=== PATIENT | male | born 1940 | race Caucasian/White ===

== ENCOUNTER 2016-07-30 | Outpatient (CLI) | payer MEDICARE | END 2016-07-30 14:31 | disposition home or self-care (01) ==

== ENCOUNTER 2016-07-30 15:30 | Outpatient (CLI) | payer MEDICARE | END 2016-07-30 15:31 | disposition home or self-care (01) | DX: E11.8 Type 2 diabetes mellitus with unspecified complications (principal); Z79.899 Other long term (current) drug therapy ==

== ENCOUNTER 2016-08-21 13:45 | Outpatient (CLI) | payer MEDICARE | END 2016-08-21 13:46 | disposition home or self-care (01) | DX: L03.115 Cellulitis of right lower limb (principal); E11.65 Type 2 diabetes mellitus with hyperglycemia; I50.30 Unspecified diastolic (congestive) heart failure; E11.621 Type 2 diabetes mellitus with foot ulcer; L97.519 Non-pressure chronic ulcer of other part of right foot with unspecified severity; E11.42 Type 2 diabetes mellitus with diabetic polyneuropathy; I87.8 Other specified disorders of veins; J44.9 Chronic obstructive pulmonary disease, unspecified; E66.01 Morbid (severe) obesity due to excess calories; I73.9 Peripheral vascular disease, unspecified; K59.09 Other constipation; F32.9 Major depressive disorder, single episode, unspecified; D64.9 Anemia, unspecified; Z99.81 Dependence on supplemental oxygen; Z79.82 Long term (current) use of aspirin; Z79.4 Long term (current) use of insulin; Z79.891 Long term (current) use of opiate analgesic; Z79.51 Long term (current) use of inhaled steroids; Z79.899 Other long term (current) drug therapy; Z66 Do not resuscitate; Z51.5 Encounter for palliative care ==

== ENCOUNTER 2017-03-23 19:40 | Outpatient (CLI) | payer MEDICARE | END 2017-03-23 19:41 | disposition critical access hospital (66) | LOC: EMS 19:40 | PROVIDERS: ATTEND Surgery | DX: R07.9 Chest pain, unspecified (principal) | CPT/HCPCS: A0425; A0427 ==

== ENCOUNTER 2017-03-23 20:23 | Emergency (ER) | payer MEDICARE ==
--- NOTE | 2017-03-23 20:41 | ED Physician Documentation ---
PD HPI CHEST PAIN - Stated complaint Stated Complaint: CHEST PN - Chief complaint Chief Complaint: Cardiac - History obtained from History obtained from: Patient - History of Present Illness Timing - onset: Today (this morning) Timing - onset during: Rest Timing - duration: Minutes Timing - details: Intermittant (episodic) Pain level now: 0 Quality: Sharp Location: Substernal, Left chest Radiation: Other (no radiation) Improved by: Nitro, ASA Worsened by: Other (no exacerbating factors) Associated symptoms: No: Shortness of air, Diaphoresis, Nausea, Vomiting, Palpitations Similar symptoms before: Has not had sx before Recently seen: Not recently seen - Additional information Additional information: episodic chest pain since this morning, resolved subsequent to NTG and aspirin given by medics, although the episodes earlier during the day had resolved without specific intervention Review of Systems Constitutional: reports: Reviewed and negative Cardiac: reports: Chest pain / pressure. denies: Palpitations, Pedal edema, Calf pain Respiratory: denies: Dyspnea GI: reports: Reviewed and negative PD PAST MEDICAL HISTORY - Past Medical History Cardiovascular: Hypertension Respiratory: COPD Neuro: None Endocrine/Autoimmune: Type 2 diabetes GI: Chronic constipation, Hemorrhoids : Renal insuffiency HEENT: None Psych: None Musculoskeletal: Osteoporosis Derm: Other - Past Surgical History Past Surgical History: Yes General: Cholecystectomy - Present Medications Home Medications: Ambulatory Orders Medication Instructions Recorded Confirmed Allopurinol [Zyloprim] 100 mg PO BID PRN 02/15/13 03/23/17 Aspirin [Aspir 81] 81 mg PO DAILY 02/15/13 03/23/17 Furosemide [Lasix] 240 mg PO BID 02/15/13 03/23/17 Potassium 60 meq PO BID 02/15/13 03/23/17 Simvastatin [Zocor] 20 mg PO DAILY 02/15/13 03/23/17 Metolazone 2.5 mg PO ONCE PRN 04/06/13 03/23/17 Senna [Senokot] 8.6 mg PO DAILY PRN 04/06/13 03/23/17 Albuterol Sulfate 1 ml NEB Q4HR PRN 04/08/13 03/23/17 Cholecalciferol (Vitamin D3) 2,000 unit PO DAILY 04/08/13 03/23/17 [Vitamin D-3] HYDROcodone/ACET 7.5/325 [Lortab 2 tab PO Q6H PRN 10/23/13 10/07/17 7.5/325] Ipratropium [place] 1 ml NEB ONCE PRN 04/08/13 03/23/17 Docusate Sodium 100 mg ORAL DAILY 04/12/15 03/23/17 Insulin Regular, Human [Humulin R 10 units SUBQ TIDWM 04/12/15 03/23/17 U-500] Tamsulosin HCl [Flomax] 0.4 mg ORAL DAILY 04/12/15 03/23/17 Insulin Glargine [Lantus Solostar] 50 units SQ BID 03/23/17 03/23/17 Metoprolol Tartrate 1 tab PO BID 03/23/17 03/23/17 - Allergies Allergies/Adverse Reactions: Allergies Allergy/AdvReac Type Severity Reaction Status Date / Time naproxen sodium * Allergy Intermediate Rash Verified 04/12/15 16:03 [From Aleve] lisinopril Allergy Unknown Verified 04/12/15 16:03 NSAIDS (Non-Steroidal Allergy Unknown Verified 04/12/15 16:03 Anti-Inflamma horsehair Allergy Unknown Uncoded 04/12/15 16:03 - Social History Does the pt smoke?: No Smoking Status: Never smoker Does the pt drink ETOH?: No Does the pt have substance abuse?: No - POLST Patient has POLST: No PD ED PE NORMAL - Vitals Vital signs reviewed: Yes - General General: Alert and oriented X 3, No acute distress, Well developed/nourished - Neck Neck: Supple, no meningeal sign - Cardiac Cardiac: RRR, No murmur - Respiratory Respiratory: No respiratory distress, Clear bilaterally - Abdomen Abdomen: Soft, Non tender, Non distended - Derm Derm: Normal color, Warm and dry - Extremities Extremities: No edema Results - Vitals Vitals: Oxygen O2 Source Nasal cannula Oxygen Flow Rate 2 - EKG (time done) No standard instances Rate: Rate (enter#) (90) Rhythm: NSR [place]: Normal Intervals: Normal ND QRS: Normal Ischemia: Normal ST segments Computer interpretation: Disagree with computer (disagree with ST elevations inferior leads) - Labs Labs: Laboratory Tests 03/23/17 03/23/17 03/23/17 20:34 20:34 20:34 WBC 10.9 H RBC 4.49 L Hgb 14.2 Hct 42.6 MCV 95.0 H MCH 31.6 H MCHC 33.3 RDW 14.9 Plt Count 268 MPV 8.2 Neut # 8.1 H Lymph # 1.8 [place] # 0.7 Eos # 0.2 Baso # 0.1 Absolute Nucleated RBC 0.00 Nucleated RBC % 0.0 Sodium 136 Potassium 3.2 L Chloride 86 L Carbon Dioxide 34 H Anion Gap 16.0 H BUN 70 H Creatinine 1.9 H Estimated GFR (MDRD) 35 L Glucose 264 H Calcium 10.7 H Total Bilirubin 0.4 AST 28 ALT 21 Alkaline Phosphatase 78 Troponin I < 0.04 Total Protein 7.5 Albumin 3.6 Globulin 3.9 Albumin/Globulin Ratio 0.9 L Lipase 34 - Rads (name of study) chest xray Radiology: Prelim report reviewed, See rad report PD MEDICAL DECISION MAKING - ED course Complexity details: reviewed results, re-evaluated patient, considered differential, d/w patient Departure - Departure Disposition: Home, Self Care Clinical Impression: Chest pain Condition: Good Instructions: ED Chest Pain Atypical Unkn Cause Comments: Follow up with your primary care physician: call Saturday to arrange for next available appointment. Your blood sugar was high today (264), as were your kidney tests (BUN/creatinine ). However, these are not related to your symptoms tonight, and these tests have been abnormal on previous tests. Your doctor might want to recheck these tests. Discharge Date/Time: 03/23/17 23:37
[2017-03-23 20:44] LABS: BASOPHILS # (AUTO) 0.1 10^3/uL (0.0-0.1); EOSINOPHILS # (AUTO) 0.2 10^3/uL (0.0-0.7); EOSINOPHILS % (AUTO) 1.7 %; HCT - HEMATOCRIT 42.6 % (42.0-52.0); HGB - HEMOGLOBIN 14.2 g/dL (14.0-18.0); LYMPHOCYTES # (AUTO) 1.8 10^3/uL (1.5-3.5); LYMPHOCYTES % (AUTO) 16.7 %; MEAN CORPUSCULAR HEMOGLOBIN 31.6 pg (27.0-31.0); MEAN CORPUSCULAR HGB CONC 33.3 g/dL (32.0-36.0); MEAN PLATELET VOLUME 8.2 fL (7.4-11.4); MONOCYTES # (AUTO) 0.7 10^3/uL (0.0-1.0); MONOCYTES % (AUTO) 6.2 %; NEUTROPHILS # (AUTO) 8.1 10^3/uL (1.5-6.6); NEUTROPHILS % (AUTO) 74.4 %; RED BLOOD COUNT 4.49 10^6/uL (4.70-6.10); RED CELL DISTRIBUTION WIDTH 14.9 % (12.0-15.0); UNCORRECTED WHITE BLOOD COUNT 10.9 x10^3/uL; WHITE BLOOD COUNT 10.9 x10^3/uL (4.8-10.8)
[2017-03-23 20:58] LABS: ALBUMIN/GLOBULIN RATIO 0.9 (1.0-2.2); BILIRUBIN,TOTAL 0.4 mg/dL (0.2-1.0); CALCIUM 10.7 mg/dL (8.5-10.3); CREATININE 1.9 mg/dL (0.6-1.2); POTASSIUM 3.2 mmol/L (3.5-5.0); TOTAL PROTEIN 7.5 g/dL (6.7-8.2)
--- NOTE | 2017-03-23 21:50 | XRAY Preliminary Report ---
Exam: XR Chest 2 View PA/LAT IMPRESSION: 1. Hypoaeration with stable left pleural thickening. 2. Cardiomegaly with aortic tortuosity. [facility] SITE ID: [id number]
--- NOTE | 2017-03-23 21:52 | XRAY Report ---
EXAM: CHEST RADIOGRAPHY EXAM DATE: 03/23/2017 09:35 PM. CLINICAL HISTORY: Chest pain. COMPARISON: Chest x-ray 04/13/2015. TECHNIQUE: 2 views. FINDINGS: Lungs/Pleura: Mild hypoaeration with left pleural thickening. No acute consolidation. Mediastinum: Cardiomegaly with tortuosity of the thoracic aorta. Other: None. IMPRESSION: 1. Hypoaeration with stable left pleural thickening. 2. Cardiomegaly with aortic tortuosity. [facility] Referring Provider Line: [phone] SITE ID: [id number]
[2017-03-23 23:18] VITALS: BP 104/53
== END 2017-03-23 23:37 | disposition home or self-care (01) ==
LOC: EDUNIT# → ED 20:23
DX: R07.9 Chest pain, unspecified (principal); I10 Essential (primary) hypertension; J44.9 Chronic obstructive pulmonary disease, unspecified; E11.9 Type 2 diabetes mellitus without complications; Z79.4 Long term (current) use of insulin; N28.9 Disorder of kidney and ureter, unspecified; Z79.82 Long term (current) use of aspirin
CPT/HCPCS: 36415; 71020; 80053; 83690; 84484; 85025; 93005; 99284

== ENCOUNTER 2017-04-15 09:35 | Outpatient (CLI) | payer MEDICARE ==
[2017-04-15] MEDS ORDERED: REGADENOSON 0.4 MG/5 ML SYRINGE IVP ONE (12:09)
--- NOTE | 2017-04-15 14:35 | Nuclear Medicine Report ---
EXAM: SINGLE-ISOTOPE PHARMACOLOGICAL STRESS TEST WITH REGADENOSON. SINGLE-ISOTOPE AND TWO-DAY REST/STRESS M YOCARDIAL PERFUSION SCANS WITH TOMOGRAPHIC IMAGING, QUANTITATIVE ANALYSIS, WALL MOTION ANALYSIS AND C ALCULATION OF EJECTION FRACTION. EXAM DATE: 04/15/2017 11:27 AM. CLINICAL HISTORY: CHEST PAIN. COMPARISON: None. TECHNIQUE: After the intravenous administration of 10.5 mCi of Tc-99m sestamibi, a rest myocardial perfusion sca n was done with tomography. Motion correction was applied when appropriate. A pharmacological stress was performed with the infusion of 0.4 mg regadenoson per protocol. Accordin g to protocol, 44 mCi of Tc-99m sestamibi was injected for stress myocardial perfusion scan. Motion c orrection was applied when appropriate. Gated tomographic images were obtained for wall motion analysis and computation of left ventricular e jection fraction. FINDINGS: Images show a small, mild, reversible distal anteroseptal wall defect. No other convincing fixed or reversible perfusion defects. Wall motion analysis demonstrates no focal wall motion abnormality The left ventricular end-diastolic volume is 71 cc. The left ventricular end-systolic volume is 32 cc . The left ventricular ejection fraction is calculated to be 55%. IMPRESSION: 1. Small, mild, distal anteroseptal wall reversible defect. No other convincing fixed or reversible p erfusion defects. 2. Normal left ventricular ejection fraction of 55%. 3. Normal segmental and global wall motion. 4. Normal left ventricular cavity size, no change with stress. [facility] Referring Provider Line: [phone] SITE ID: [id number]
--- NOTE | 2017-04-15 22:45 | CARDIAC PROCEDURE NOTE ---
DATE OF SERVICE: BLOOD PRESSURE RESPONSE: 127/79 to a maximum 144/81. HEART RATE RESPONSE: 104 to observed maximum of 120, the machine read 136. SYMPTOMS: No chest pain. There was some shortness of breath. EXAMINATION CHANGES: None. ST-SEGMENT RESPONSE: No ST-segment elevations or depressions. ARRHYTHMIAS: One PAC detected. IMPRESSION: No symptoms or significant EKG changes. CONCLUSION: Await imaging studies. JOB #: [id number] EXT JOB #:[id number]
[2017-04-16 11:06] VITALS: BP 127/79
== END 2017-04-15 09:36 | disposition home or self-care (01) ==
LOC: DI 09:35
PROVIDERS: ATTEND Internal Medicine
DX: R07.9 Chest pain, unspecified (principal)
CPT/HCPCS: 78452; 93017; A9500; J2785

== ENCOUNTER 2017-07-23 20:24 | Outpatient (CLI) | payer MEDICARE ==
--- NOTE | 2017-07-23 20:33 | CONSULTATION NOTE ---
Palliative Care Follow Up - Referral Referring Provider: Dr Marivel Candelaria Time of Visit: 07/23/2017 14:20 - 15:35 Referral setting: Home (Seen in home setting due to taxing and considerable effort required to leave the home due to lower extremity weakness and being bed- bound in the recliner) - Information Sources Records reviewed: Previous records reviewed History/Review of Systems obtained from: Patient, Family Exam limitations: No limitations - History of Present Illness Update Brief HPI Update: This is a 76-year-old gentleman with end-stage COPD, morbid obesity, diabetes with peripheral neuropathy and nephropathy, diastolic heart failure, and peripheral vascular disease. He was last seen by palliative care nearly a year ago, in August 2016. His , who is his sole caregiver, states that she wanted nursing to come in, because she needs to know how he is doing, and needs some help. She had wanted nursing to come to draw his blood for lab work, and I educated her on what home health nursing actually is for. She does state that they have too much income to qualify for [facility] caregiving, but they cannot afford to hire outside care givers to relieve the burden of full care giving from her. Their adult son lives with them, but apart from watching the patient for short times while she leaves, the brunt of the caregiving falls on her. Their are son works very long hours in [place], on Wednesdays and Fridays. She says at this time Saturday afternoons are the only time she could get patient out of the house, because she needs her son there to help with that. The palliative care MECHANICAL ENGINEERING ADVISOR last year facilitated obtaining a bariatric wheelchair for the patient to accommodate the patient's large size. However this extra wide chair means that it is very difficult to actually get it through the exterior door, and so in effect he is remains "recliner bound" -- and housebound -- because of this logistical issue. He is unable to use the wheelchair even inside the house due to its size. She did say when her son is home on Saturdays, he could help her get him out, but she is unable to handle the wheelchair and get it in and out of the car. The patient continues to experience shortness of breath at rest, and he currently uses a nebulizer about 4 times a day, with Dulera inhaler BID and ProAir inhaler as needed, usually 2-3 times daily. He is also on oxygen, 1.5 L. His spouse is not willing to consider morphine for relief of breathlessness. I provided education, and weighing benefits and burdens. She delinces at this time. He continues to use [place] 4 times a day for pain control, and also reports constipation. She has not been administering the MiraLAX previously prescribed. He does complain of tingling, stinging pain in both hands and his feet. I discussed starting gabapentin, weighing benefits and burdens, and his agreed to accept a prescription for this. I am not certain that she will actually get it fulfilled. She said she is not administering the citalopram previously prescribed because she is concerned about potential side effects, in particular psychotic episodes (her "standing over her with a knife"). I did discuss side effects, benefits and burdens. The skin of his lower extremities is compromised secondary to peripheral vascular disease, but no open wounds, no blisters, no signs of infection or cellulitis, nor edema currently. Skin on the lower extremities is dry and flaky. His toenails are quite thick with fungal infection, and several toes on L foot are discolored dark red from vascular deficiency, as well as on his R kauffman. The patient reports that his appetite has definitely decreased. He is currently 243 lbs, down from last year's 317 lbs, 23.3%. Social History - Living Situation Living arrangement: At home Living Situation: With spouse/s.o. (His spouse is his sole caregiver. The adult son lives with them, but works long hours and is unavailable most of the time. He may be available on Saturday afternoons, or for short periods to watch the patient while his spouse goes on errands.) Medications/Allergies - Medications Home Medications: Ambulatory Orders Medication Instructions Recorded Confirmed Allopurinol [Zyloprim] 100 mg PO BID PRN 02/15/13 07/23/17 Aspirin [Aspir 81] 81 mg PO DAILY 02/15/13 07/23/17 Furosemide [Lasix] 240 mg PO BID 02/15/13 07/23/17 Potassium 20 meq PO BID 02/15/13 07/23/17 Simvastatin [Zocor] 20 mg PO DAILY 02/15/13 07/23/17 metOLazone [Metolazone] 2.5 mg PO .2 TIMES PER WEEK PRN 04/06/13 07/23/17 Cholecalciferol (Vitamin D3) 2,000 unit PO DAILY 04/08/13 07/23/17 [Vitamin D-3] HYDROcodone/ACET 7.5/325 [Lortab 1 tab PO Q6H PRN 04/08/13 07/23/17 7.5/325] Docusate Sodium 100 mg ORAL DAILY 04/12/15 07/23/17 Insulin Regular, Human [Humulin R 10 units SUBQ TIDWM 04/12/15 07/23/17 U-500] Tamsulosin HCl [Flomax] 0.4 mg ORAL DAILY 04/12/15 07/23/17 Insulin Glargine [Lantus Solostar] 110 units SQ BID 03/23/17 07/23/17 Metoprolol Tartrate 50 mg PO BID 03/23/17 07/23/17 Albuterol Sulfate [Proair Hfa 2 puffs PO Q4H PRN 07/23/17 07/23/17 Inhaler] Gabapentin 200 mg PO QPM 07/23/17 07/23/17 Ipratropium/Albuterol [Duoneb] 3 ml 07/23/17 Mometasone/Formoterol [Dulera 200 2 puffs PO BID 07/23/17 07/23/17 Mcg/5 Mcg Inhaler] Polyethylene Glycol 3350 [Miralax] 17 gm PO DAILY MDD use from 06/20 - 07/23/17 1 capful daily Zinc 50 mg PO DAILY 07/23/17 07/23/17 - Allergies Allergies/Adverse Reactions: Allergies Allergy/AdvReac Type Severity Reaction Status Date / Time naproxen sodium * Allergy Intermediate Rash Verified 04/12/15 16:03 [From Aleve] lisinopril Allergy Unknown Verified 04/12/15 16:03 NSAIDS (Non-Steroidal Allergy Unknown Verified 04/12/15 16:03 Anti-Inflamma horsehair Allergy Unknown Uncoded 04/12/15 16:03 Review of Systems - Constitutional Constitutional: reports: Fatigue, Weakness, Poor appetite, Weight loss (243 lbs on 06/21/2017. Down from 317 lbs last year. 23.3% decrease) - Ears, Nose & Throat Ears, Nose & Throat: reports: Hearing loss - Cardiovascular Cardiovascular: reports: Decr. exercise tolerance - Respiratory Respiratory: reports: SOB at rest - Gastrointestinal Gastrointestinal: reports: Constipation, Poor appetite, Early satiety - Genitourinary Genitourinary: reports: Incontinence (of bladder) - Musculoskeletal Musculoskeletal: reports: Limited range of motion, Muscle weakness, Gout (no current outbreak) - Integumentary Integumentary: reports: Pigment changes (hemosiderin skin right lower extremity) , Other (fungal toenails; discolored toes of L foot secondary to vascular compromise) - Neurological Neurological: reports: Memory problems - Endocrine Endocrine: reports: Diabetes type 2 Physical Exam - Vital Signs Temperature: 96.3 F Pulse Rate: 95 Blood Pressure: 140/70 - Physical Exam General Appearance: positive: Alert, Mild distress (when he was made to stand up for a skin inspection), Lethargic Eyes Bilateral: positive: EOMI, No lid inflammation, Conjunctivae nml, No scleral icterus ENT: positive: No signs of dehydration Neck: positive: No JVD, Trachea midline Cardiovascular: positive: Regular rate & rhythm, No murmur, No gallop Abdomen: positive: Non-tender, Soft, Nml bowel sounds, Distended, Obese, Other ( marked ventral hernia) Skin: positive: Dryness (lower extremities), Other (discolored in sacral region , likely deep tissue damage from immobility) Extremities: positive: No pedal edema Neurologic/Psychiatric: positive: Disoriented to time, Weakness, Sensory loss ( in feet), Flat affect Palliative Care - POLST POLST Status: DNR, Selective Treatment Pain: Comment (complaints of stinging pain in both hands, and feet) Drowsiness/Sedation: Mild (1-3) Dyspnea: Moderate (4-6) Anorexia: Moderate (4-6) Constipation: Yes, Opoid induced - Palliative Care Discussion: Patient's main complaint is pain in his hands and feet. He is willing to try a medication for neuropathic pain. POLST is signed, DNR and selective treatment. His fear is of ending up in a skilled nursing. was hoping for Home Health, I educated that there is no qualifying criteria met at this current time. She has appreciated the training and help in the past. She would like lab draws done to see "how he is doing." I filled out a lab requisition form and they may go to the [facility] for the lab draw. Impression and Recommendations - Palliative Care Impression: This is a 76-year old gentleman who presents with end-stage chronic pulmonary disease, diastolic heart failure, and chronic kidney disease. He has multiple serious co-morbidities, but with no acute presentation. Recommendations/Counseling Done: DM II: Currently on Lantus 110 units BID and Humalog insulin 10 units TID with meals. A1C from 07/30/16 was 7.7. Ordered A1C lab draw. Neuropathic pain, hands and feet: Start gabapentin 200 mg PO daily at bedtime. End stage COPD: Continue nebulizer, 1.5 liters O2, albuterol prn and anticholinergic/long-acting steroid inhaler (Dulera). Labs ordered, see below. Morphine for alleviation of breathlessness declined at this time. Diastolic heart failure: Continue furosemide and metoprolol for rate/pressure control. No edema currently. Constipation: Advised to not use docusate sodium, to go back to using Miralax, use it daily and titrate dosage (from 1/4 - 1 capful) rather than using it PRN. Advanced care planning: POLST in place, no changes: DNR, selective treatment. Ordered labs: CMP, WBC, A1c Follow up in 1-2 weeks after initiation of gabapentin. Time Spent: 75 minutes with greater than 50% of the time spent on counseling, education, and coordination of care, including medication reconciliation.
== END 2017-07-23 20:25 | disposition home or self-care (01) ==
LOC: PC 20:24
PROVIDERS: ATTEND Nurse Practitioner
DX: Z51.5 Encounter for palliative care (principal); E11.21 Type 2 diabetes mellitus with diabetic nephropathy; E11.40 Type 2 diabetes mellitus with diabetic neuropathy, unspecified; Z79.4 Long term (current) use of insulin; G57.93 Unspecified mononeuropathy of bilateral lower limbs; G56.93 Unspecified mononeuropathy of bilateral upper limbs; J44.9 Chronic obstructive pulmonary disease, unspecified; I50.30 Unspecified diastolic (congestive) heart failure; K59.00 Constipation, unspecified; E66.01 Morbid (severe) obesity due to excess calories; Z99.81 Dependence on supplemental oxygen; I73.9 Peripheral vascular disease, unspecified; Z79.82 Long term (current) use of aspirin; Z79.891 Long term (current) use of opiate analgesic; Z79.51 Long term (current) use of inhaled steroids; R53.83 Other fatigue; Z66 Do not resuscitate
CPT/HCPCS: 99350

== ENCOUNTER 2017-07-29 11:18 | Outpatient (CLI) | payer MEDICARE ==
[2017-07-29 18:02] LABS: BASOPHILS # (AUTO) 0.1 10^3/uL (0.0-0.1); BASOPHILS % (AUTO) 0.4 %; EOSINOPHILS # (AUTO) 0.3 10^3/uL (0.0-0.7); EOSINOPHILS % (AUTO) 2.1 %; HGB - HEMOGLOBIN 13.5 g/dL (14.0-18.0); LYMPHOCYTES # (AUTO) 2.3 10^3/uL (1.5-3.5); LYMPHOCYTES % (AUTO) 18.3 %; MEAN CORPUSCULAR HEMOGLOBIN 30.5 pg (27.0-31.0); MEAN CORPUSCULAR HGB CONC 32.1 g/dL (32.0-36.0); MEAN CORPUSCULAR VOLUME 95.3 fL (80.0-94.0); MEAN PLATELET VOLUME 9.2 fL (7.4-11.4); MONOCYTES # (AUTO) 0.8 10^3/uL (0.0-1.0); NEUTROPHILS # (AUTO) 9.2 10^3/uL (1.5-6.6); NEUTROPHILS % (AUTO) 73.2 %; PLT - PLATELET COUNT 309 10^3/uL (130-450); RED BLOOD COUNT 4.41 10^6/uL (4.70-6.10); RED CELL DISTRIBUTION WIDTH 15.1 % (12.0-15.0); WHITE BLOOD COUNT 12.5 x10^3/uL (4.8-10.8)
[2017-07-29 18:12] LABS: HB2 TOTAL 14.9 g/dL; HEMOGLOBIN A1C 0.99 g/dL; HEMOGLOBIN A1C % 8.2 % (4.6-6.2)
[2017-07-29 18:20] LABS: ALBUMIN 3.5 g/dL (3.2-5.5); ALBUMIN/GLOBULIN RATIO 0.9 (1.0-2.2); BILIRUBIN,TOTAL 0.5 mg/dL (0.2-1.0); CALCIUM 10.1 mg/dL (8.5-10.3); CREATININE 1.4 mg/dL (0.6-1.2); TOTAL PROTEIN 7.5 g/dL (6.7-8.2)
== END 2017-07-29 11:19 | disposition home or self-care (01) ==
LOC: LAB.S 11:18
PROVIDERS: ATTEND Nurse Practitioner
DX: E11.9 Type 2 diabetes mellitus without complications (principal)
CPT/HCPCS: 36415; 80053; 83036; 85025

== ENCOUNTER 2017-10-04 04:08 | Outpatient (CLI) | payer MEDICARE | END 2017-10-04 04:09 | disposition EMS.NT | LOC: EMS 04:08 | PROVIDERS: ATTEND Surgery | DX: Z03.89 Encounter for observation for other suspected diseases and conditions ruled out (principal) ==

== ENCOUNTER 2017-10-17 16:10 | Outpatient (CLI) | payer MEDICARE ==
--- NOTE | 2017-10-17 20:35 | CONSULTATION NOTE ---
Palliative Care Follow Up - Referral Referring Provider: Dr Candelaria Time of Visit: 10/17/2017. 16:10 - 18:00 Referral setting: Home (Seen in home setting due to taxing and considerable effort required to leave the home due to immobility and being bedbound from lower extremity weakness secondary to multiple comorbidities.) Referral Reason: Urinary retention / lower extremity weakness / acute functional decline - Information Sources Records reviewed: Previous records reviewed History/Review of Systems obtained from: Patient, Family Exam limitations: No limitations - History of Present Illness Update Brief HPI Update: FACE to FACE for hospital bed, Group I surface mattress, and Home Health Nursing for Indwelling catheter: Due to shortness of air as a result of orthopnea due to heart failure and advanced COPD, patient requires positioning of body in ways not feasible in an ordinary bed such as elevation of head more than 30 degrees. Head of bed elevation over 30 degrees will alleviate exacerbated symptoms caused by heart failure. Patient also requires frequent change in body position such as immediate elevation of head of bed from flat position to elevation over 30 degrees as a result of shortness of air. Pillows and wedges have been unsuccessful in accommodating the desired head of bed elevation, therefore a hospital bed will be necessary for treating the effects of shortness of air and orthopnea secondary to heart failure and COPD. Due to lower extremity weakness and immobility as a result of heart failure and advanced COPD, patient is completely immobile in bed and requires a Group 1 support surface to promote healthy skin integrity as well as reduce occurrence of decubitus ulcers while in bed. Patient was experiencing urinary retention, the etiology of which is multifactorial likely related to his immobility, CKD, BPH, and multiple comorbidities. A Boland indwelling catheter was placed, immediately draining 2500 + cc. Patient and family require on-going nursing oversight and support of indwelling catheter. He is homebound and currently confined to his recliner, and he will also require monitoring of skin integrity. -A 77-year-old gentleman with end-stage COPD, who is bedridden and experiencing increased weakness in legs so that he is no longer able to stand, weight bear, or assist with transfers. His is his sole caregiver. -Comorbidities: End-stage COPD, diastolic heart failure (EF 55%), morbid obesity , diabetes with peripheral neuropathy and nephropathy, peripheral vascular disease, hypertension, retinopathy, RAD, pulmonary hypertension, CAD, CKD ABHINAV, BPH, gout, anemia, depression, history of cholecystectomy, history of laser eye procedure. -This is a very ill gentleman, etiology multifactorial due to his numerous comorbidities. -His is his sole caregiver and at risk for burnout. Does not or cannot hire outside caregiving support. -Acute decrease in functionality and increased lower extremity weakness x 2 weeks. -No longer able to bear any weight x 2 weeks. - no longer able to perform single-person transfer assist. -Now requires 2 large men to transfer from recliner to perform hygiene for bowel incontinence. - requests indwelling Boland catheter due to his immobility / recliner-bound. -Indwelling Boland catheter placed today with immediate 2500+ cc juan colored drainage. -Drainage of urine resolved the lower abdominal pain patient had when attempting to lean forward/sit upright. -Chronic pain and numbness in hands and feet. - reports gabapentin did not make any difference and she stopped giving it but doesn't actually recall med's name. -I cannot confirm it was gabapentin, and it is still listed on 10/07/17 med list from PCP. -Candidiasis rash on R groin, none on L. uses Coloplast moisture barrier antifungal cream. I will switch that to Nystatin powder to promote dryness. -He is chronically constipated with alternating hard stool and loose stools, with BMs "every few weeks." -His is not administering the Miralax. -Patient normally drinks water throughout the day, but decreased his fluid intake recently, likely due to the urine backup. -Also his SOA may improve now that his bladder can empty -He became short of air within a quarter hour on room air, but O2 sats remained 91-92% on Room air, 95-99% with oxygen, -He retains CO2. -The patient likely meets Hospice criteria and it is consistent withpatient's goals of remaining at home and not go to the hospital. -Discussed this with Hospice ophthalmic medical technologist, and will monitor his progress now that he has an indwelling catheter and will have a hospital bed. -Also called Dr Candelaria's clinic to discuss Hospice eligibility, she will call back. Social History - Living Situation Living arrangement: At home Living Situation: With spouse/s.o. Support System: The spouse is his sole caregiver. Their adult son lives with them, or did, but is mostly unavailable. She has been getting "two big men" to help stand him up every time she needs to clean him after BMs. Medications/Allergies - Medications Home Medications: Ambulatory Orders Medication Instructions Recorded Confirmed Allopurinol [Zyloprim] 100 mg PO BID PRN 02/15/13 10/17/17 Aspirin [Aspir 81] 81 mg PO DAILY 02/15/13 10/17/17 Furosemide [Lasix] 240 mg PO BID 02/15/13 10/17/17 Potassium 20 meq PO BID 02/15/13 10/17/17 Simvastatin [Zocor] 20 mg PO DAILY 02/15/13 10/17/17 metOLazone [Metolazone] 2.5 mg PO .ONCE A WEEK 04/06/13 10/17/17 Cholecalciferol (Vitamin D3) 2,000 unit PO DAILY 04/08/13 10/17/17 [Vitamin D-3] HYDROcodone/ACET 7.5/325 [Lortab 1 tab PO Q6H PRN 04/08/13 10/17/17 7.5/325] Insulin Regular, Human [Humulin R 10 units SUBQ TIDWM 04/12/15 10/17/17 U-500] Tamsulosin HCl [Flomax] 0.4 mg ORAL DAILY 04/12/15 10/17/17 Insulin Glargine [Lantus Solostar] 50 units SQ BID 03/23/17 10/18/17 Metoprolol Tartrate 50 mg PO BID 03/23/17 10/17/17 Albuterol Sulfate [Proair Hfa 2 puffs PO Q4H PRN 07/23/17 10/17/17 Inhaler] Gabapentin 200 mg PO QPM 07/23/17 10/17/17 Ipratropium/Albuterol [Duoneb] 3 ml PO BID 07/23/17 10/17/17 Mometasone/Formoterol [Dulera 200 2 puffs PO BID 07/23/17 10/17/17 Mcg/5 Mcg Inhaler] Polyethylene Glycol 3350 [Miralax] 17 gm PO DAILY MDD use from 06/20 - 07/23/17 1 capful daily Zinc 50 mg PO DAILY 07/23/17 10/17/17 Ipratropium/Albuterol Sulfate 3 ml PO Q4H PRN 10/17/17 10/17/17 [Iprat-Albut 0.5-3(2.5) mg/3 ml] Isosorbide Mononitrate [Isosorbide 30 mg PO DAILY 10/17/17 10/17/17 Mononitrate ER] Nitroglycerin 0.4 mg SL Q5MIN PRN 10/17/17 10/17/17 Nystatin 1 ea TOP BID 10/17/17 10/17/17 - Allergies Allergies/Adverse Reactions: Allergies Allergy/AdvReac Type Severity Reaction Status Date / Time naproxen sodium * Allergy Intermediate Rash Verified 04/12/15 16:03 [From Aleve] lisinopril Allergy Unknown Verified 04/12/15 16:03 NSAIDS (Non-Steroidal Allergy Unknown Verified 04/12/15 16:03 Anti-Inflamma horsehair Allergy Unknown Uncoded 04/12/15 16:03 Review of Systems - Constitutional Constitutional: reports: Fatigue, Weakness, Weight loss (Most recent confirmed weight is 239.5 lbs (BMI 33) at Mar 2017 ED visit. Previous confirmed weight is 341.66 lbs (BMI 50.6) at Mar 2015 ED visit.) - Ears, Nose & Throat Ears, Nose & Throat: reports: Hearing loss - Respiratory Respiratory: reports: SOB at rest (oxygen 1.5L 24/7.) - Gastrointestinal Gastrointestinal: reports: Constipation (Alternating constipation/hard stools and loose stools), Diarrhea - Genitourinary Genitourinary: reports: Incontinence. denies: Dysuria, Frequency - Musculoskeletal Musculoskeletal: reports: Muscle pain ("pain all over" Takes [place] 7.5/325 4x daily for years), Assistive devices (Wheelchair), Transfer issues (Increased lower extremity weakness so he is non weight bearing x 2 weeks), Other (chronic pain and numbness in hands and feet) - Integumentary Integumentary: reports: Rash (Candidiasis rash R groin) - Neurological Neurological: reports: General weakness, Focal weakness (acute, in lower extremities), Memory problems Physical Exam - Vital Signs Temperature: 97.1 F Pulse Rate: 71 O2 Saturation: 91 (room air) Blood Pressure: 160/92 - Physical Exam General Appearance: positive: No acute distress, Alert Eyes Bilateral: positive: No lid inflammation, Conjunctivae nml, No scleral icterus ENT: positive: No signs of dehydration Neck: positive: No JVD, Trachea midline Cardiovascular: positive: Regular rate & rhythm, Systolic murmur (06/22) Respiratory: positive: Diminished throughout (body habitus), Wheezes, Rales ( crackles) Abdomen: positive: Tenderness (lower right groin area), Obese Skin: positive: Rash (candidiasis rash R groin.) Extremities: positive: No pedal edema, Other (Discoloration on Lower extremities. Scabbed, healing trauma wound on R kauffman.) Neurologic/Psychiatric: positive: Oriented x3, Flat affect Palliative Care - POLST Patient has POLST: Yes POLST Status: DNR Pain: Pain unchanged, Comment (chronic pain "all over" but complains mostly about hands and feet. Reports gabapentin did not make a difference and so they stopped it) Dyspnea: Severe (7-10) (without oxygen) Sleep: Sleeps poorly (recent insomnia, possibly related to discomfort from urinary retention) Constipation: Yes, Unmanaged (non-adherent) Performance Status: Worsening in the past two weeks. Patient is no longer able to bear any weight and requires 2 men to lift him from recliner for hygiene procedures. - Palliative Care Discussion: Patient is adamant that he does not want to leave home or go to hospital. He is fearful if he goes to hospital he will there. He is now completely recliner- bound. His is the sole caregiver and is at high risk of burnout. She has to round up two big men any time she needs to get him out of his recliner, which is whenever he has a BM, which is apparently not very often. On 10/04/17 he fell out of his recliner and EMS was called to provide lift assistance. Switching the patient to a hospital bed will improve the ability to provide appropriate care now that he is immobile and [id number]. He was on Home Health in the past, and the is relieved that a HH nurse will be monitoring the catheter and providing oversight and education. Patient and were both agreeable to Hospice when he meets criteria. There is still the issue of halfway care and care giving, and I provided education to the , both during the visit and on the previous phone conversation that Hospice, HH, and Palliative Care cannot provide and do not replace care giving services. Impression and Recommendations - Palliative Care Impression: This is a 77-year-old gentleman with end-stage chronic pulmonary disease, diastolic heart failure, and chronic kidney disease who has recently decline and become immobile and [id number]. He had urinary retention of unknown duration, relieved by placement of an indwelling catheter. Home health RN will provide monitoring and maintenance of the catheter, a hospital bed is recommended due to patient's chronic SOA and to provide an environment for appropriate caregiving. If patient's status does not improve, transition to hospice will be recommended. Recommendations/Counseling Done: Constipation: Patient and non-adherent on bowel medications. Encouraged her to restart Miralax and use it daily, titrating dosage if loose stools occur. Patient usually hydrates well, but had not done so in the past two weeks , likely related to the urinary retention. He may restart, and this would also hopefully improve his BMs. SOA: Chronic. Using Duonebs and Dulara (will be switching to Advair when Dulera is out). At next visit, have patient demonstrate his inhalation technique. Continue 24/4 O2 via nasal cannula, currently 15.L/min. Urinary retention likely exacerbated the SOA, will monitor for improvement now that he has indwelling catheter. Urinary retention: Boland catheter placed, 2500+ cc of urine were immediately drained. HH Nursing will be monitoring and maintaining the catheter. Monitor for improvement in functionality and mobility. Lower extremity weakness: Etiology unknown but likely multifactorial. Patient unable to weight bear x 2 weeks. Ordered hospital bed and Grade I surface mattress to promote skin integrity. HH will monitor skin during visits. Montor for improvement or continued decline. Advanced care planning: LAKIAST from [address]: DNR and selective treatments. Patient is adamant that he does not want hospitalization, so review his POLST at upcoming visit and update to comfort care if patient is agreeable. Monitor his progress now that he is catheterized and will be in a hospital bed, which hopefully will improve his 's ability to provide care. Left message with PCP, Dr Candelaria, about transitioning to Hospice. For the time being, put him on HH and continue Palliative care monitoring, with plan to transition to Hospice if no improvements in status, functionality, and SOA. Time Spent: 110 minutes were spent with more than 50% of the time spent on counseling, education, and coordination of care. Provided anticipatory guidance.
== END 2017-10-17 16:11 | disposition home or self-care (01) ==
LOC: PC 16:10
PROVIDERS: ATTEND Nurse Practitioner
DX: Z51.5 Encounter for palliative care (principal); I13.0 Hypertensive heart and chronic kidney disease with heart failure and stage 1 through stage 4 chronic kidney disease, or unspecified chronic kidney disease; I50.30 Unspecified diastolic (congestive) heart failure; J44.9 Chronic obstructive pulmonary disease, unspecified; R33.9 Retention of urine, unspecified; R53.1 Weakness; E11.22 Type 2 diabetes mellitus with diabetic chronic kidney disease; E11.42 Type 2 diabetes mellitus with diabetic polyneuropathy; E11.51 Type 2 diabetes mellitus with diabetic peripheral angiopathy without gangrene; E11.319 Type 2 diabetes mellitus with unspecified diabetic retinopathy without macular edema; N18.9 Chronic kidney disease, unspecified; N40.1 Benign prostatic hyperplasia with lower urinary tract symptoms; R33.8 Other retention of urine; E66.01 Morbid (severe) obesity due to excess calories; Z68.33 Body mass index [BMI] 33.0-33.9, adult; B37.2 Candidiasis of skin and nail; K59.09 Other constipation; R53.83 Other fatigue; Z66 Do not resuscitate; Z79.4 Long term (current) use of insulin
CPT/HCPCS: 99350

== ENCOUNTER 2017-11-21 21:19 | Outpatient (CLI) | payer MEDICARE ==
--- NOTE | 2017-11-21 21:53 | CONSULTATION NOTE ---
Palliative Care Follow Up - Referral Referring Provider: Dr Candelaria Time of Visit: 11/22/2017. 13:40 - 14:10 Referral setting: Home (Seen in home setting due to taxing and considerable effort required to leave the home due to immobility and being bedboud from lower extremity weakness secondary to multiple comorbidities.) Referral Reason: Pain in hands - Information Sources Records reviewed: RN notes reviewed, Previous records reviewed History/Review of Systems obtained from: Patient, Family, Nursing, Other ( Physical Therapy) - History of Present Illness Update Brief HPI Update: -77-year-old gentleman with end-stage COPD, who is bedridden. He is unable to stand, bear weight, assist with transfers, or reposition himself in bed. His is his sole caregiver. -Comorbidities, end-stage COPD, diastolic heart failure (EF 55%), morbid obesity , diabetes with peripheral neuropathy and nephropathy, peripheral vascular disease, hypertension, retinopathy, RAD, pulmonary hypertension, CAD, CKD ABHINAV, BPH, gout, anemia, depression, history of cholecystectomy, history of laser eye procedure. -Last month his lower extremity weakness greatly exacerbated, secondary to severe urinary retention. Boland catheter was placed and he had liters of urine draining over the next 24 hours. -Since the placement of Boland catheter he has significantly improved, although continues to be completely non-weightbearing. -He is in a hospital bed now, a significant improvement over the recliner he formerly used. -He is receiving Home health RN, bathing aid, and physical therapy. -He reports that he is doing his PT exercises regularly. -Physical therapy plans to discharge him on 11/27, after the anticipated arrival of his above-bed trapeze, due to arrive 11/26. -He and his are very appreciative of the help and support provided by home health, and are nervous about eventually being discharged from home health. -Home Health will continue checking/changing Boland catheter on an ongoing monthly basis. -Patient complains of burning pain in his hands, and less to a lesser degree in his feet. I had started gabapentin several months ago. Restarted it again last month, with a very gradual upward titration. -They are in the middle of this titration, currently at 100 mg in a.m. and 200mg in p.m. -Patient reports no improvement in the pain in his hands. -He also reported nightmares for about one week, which have since resolved. -I encouraged his to continue with upward titration, educating them that the benefits of gabapentin take some weeks to manifest. -Otherwise the patient reports everything at his long-time (decades) baseline: Appetite, chest pain, shortness of breath, wheezing. -He does report several days between bowel movements, I provided education on using bowel medications, especially with usage of opioids. -Advised his spouse to buy senna [id number], starting with 1 pill daily, and to a lesser degree MiraLAX. His stools are soft, he just has days between BMs. Social History - Living Situation Living arrangement: At home Living Situation: With spouse/s.o. Support System: is his sole caregiver. Son lives with them, doesn't appear to be very involved in caregiving. 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 She has worked there for 30+ year. She is planning to retire soon. Her neighbors help out; she reports getting "big men" to help stand him up when needed. Medications/Allergies - Medications Home Medications: Ambulatory Orders Medication Instructions Recorded Confirmed Allopurinol [Zyloprim] 100 mg PO BID PRN 02/15/13 10/17/17 Aspirin [Aspir 81] 81 mg PO DAILY 02/15/13 10/17/17 Furosemide [Lasix] 240 mg PO BID 02/15/13 10/17/17 Potassium 20 meq PO BID 02/15/13 10/17/17 Simvastatin [Zocor] 20 mg PO DAILY 02/15/13 10/17/17 metOLazone [Metolazone] 2.5 mg PO .ONCE A WEEK 04/06/13 10/17/17 Cholecalciferol (Vitamin D3) 2,000 unit PO DAILY 04/08/13 10/17/17 [Vitamin D-3] HYDROcodone/ACET 7.5/325 [Lortab 1 tab PO Q6H PRN 04/08/13 10/17/17 7.5/325] Insulin Regular, Human [Humulin R 10 units SUBQ TIDWM 04/12/15 10/17/17 U-500] Tamsulosin HCl [Flomax] 0.4 mg ORAL DAILY 04/12/15 10/17/17 Insulin Glargine [Lantus Solostar] 50 units SQ BID 03/23/17 10/18/17 Metoprolol Tartrate 50 mg PO BID 03/23/17 10/17/17 Albuterol Sulfate [Proair Hfa 2 puffs PO Q4H PRN 07/23/17 10/17/17 Inhaler] Ipratropium/Albuterol [Duoneb] 3 ml PO BID 07/23/17 10/17/17 Mometasone/Formoterol [Dulera 200 2 puffs PO BID 07/23/17 10/17/17 Mcg/5 Mcg Inhaler] Polyethylene Glycol 3350 [Miralax] 17 gm PO DAILY MDD use from 06/20 - 07/23/17 1 capful daily Zinc 50 mg PO DAILY 07/23/17 10/17/17 Ipratropium/Albuterol Sulfate 3 ml PO Q4H PRN 10/17/17 10/17/17 [Iprat-Albut 0.5-3(2.5) mg/3 ml] Isosorbide Mononitrate [Isosorbide 30 mg PO DAILY 10/17/17 10/17/17 Mononitrate ER] Nitroglycerin 0.4 mg SL Q5MIN PRN 10/17/17 10/17/17 Nystatin 1 ea TOP BID 10/17/17 10/17/17 Gabapentin 100 mg PO DAILY MDD upward 11/21/17 11/21/17 titration over weeks - Allergies Allergies/Adverse Reactions: Allergies Allergy/AdvReac Type Severity Reaction Status Date / Time naproxen sodium * Allergy Intermediate Rash Verified 04/12/15 16:03 [From Aleve] lisinopril Allergy Unknown Verified 04/12/15 16:03 NSAIDS (Non-Steroidal Allergy Unknown Verified 04/12/15 16:03 Anti-Inflamma horsehair Allergy Unknown Uncoded 04/12/15 16:03 Review of Systems - Constitutional Constitutional: reports: Fatigue, Weakness, Weight loss (most recent confirmed weight is 239.5 lbs at Mar 2017 ED visit. Previously weighted 341.66 at Mar 2015 ED visit.) - Ears, Nose & Throat Ears, Nose & Throat: reports: Hearing loss - Respiratory Respiratory: reports: Wheezing, SOB at rest, SOB with exertion - Gastrointestinal Gastrointestinal: reports: Constipation - Genitourinary Genitourinary: reports: Incontinence (bowel and bladder), Other (Boland catheter) . denies: Dysuria - Musculoskeletal Musculoskeletal: reports: Muscle weakness, Assistive devices (over-bed trapeze is on order), Transfer issues (Bedbound, unable to reposition himself, unable to transfer), Other (Chronic pain x years; takes Yancey 7.5/325 4x/daily x years. Neuropathic pain, worse in hands than feet) - Neurological Neurological: reports: General weakness, Focal weakness (lower extremities), Memory problems - Endocrine Endocrine: reports: Diabetes type 2 Physical Exam - Vital Signs Temperature: 95.8 F Pulse Rate: 80 O2 Saturation: 92 (1.5L) Blood Pressure: 128/75 - Physical Exam General Appearance: positive: No acute distress, Lethargic Eyes Bilateral: positive: No lid inflammation, Conjunctivae nml, No scleral icterus ENT: positive: No signs of dehydration Neck: positive: Trachea midline Cardiovascular: positive: Regular rate & rhythm, No murmur Respiratory: positive: Chest non-tender, No respiratory distress, Diminished throughout Abdomen: positive: Obese, Other (hernia) Extremities: positive: Other (discoloration of lower extremities). negative: No pedal edema Neurologic/Psychiatric: positive: Oriented x3, Flat affect Palliative Care - POLST Patient has POLST: Yes POLST Status: DNR, Selective Treatment Pain: Pain unchanged, Comment (chronic pain on Yancey for years. Neuropathic, burning pain, worse in hands, but in feet too. So far no improvement with gabapentin) Sleep: Sleep improved (Nightmares last week have resolved) Constipation: Yes, Unmanaged (recommended Senna. They have docusate.) Impression and Recommendations - Palliative Care Impression: This is a 77-year-old man with end-stage chronic pulmonary disease, diastolic heart failure, and chronic kidney disease, and numerous other comorbidities. He is now on home health nursing, bath aide, and PT after severe urinary retention last month (many liters drained over several days). With the Boland catheter and his new hospital bed his situation has improved, but his health is still quite precarious. PT plans to discharge him next week, after the over- bed trapeze arrives (to help him reposition himself in bed. Home health care will eventually discharge him, but will continue monthly monitoring for his catheter. Palliative care will continue to monitor and transition to hospice when appropriate. Recommendations/Counseling Done: Constipation: Advised to get Senna OTC -- she says she can't find it, but she also doesn't go to pharmacies. Doesn't seem to like [facility]. They report he goes several days without a bowel movement, but his stool is soft. They currently have docusate; I advise against using it, particularly by itself. Urinary retention: Resolved with Boland catheter . HH RN continues to monitor and oversee; eventually they will decrease to monthly visits for maintenance and changing of the Boland. Lower extremity weakness and debility: Hospital bed arrived, this has vastly improved his life, and 's ability to provide care and reposition him. Lola is due to arrive next week, so that he can reposition himself in bed, and PT is due to discharge him afterward. Neuropathic pain: Started gabapentin with very gradual upward titration, started around 11/01/17: 100mg every evening x 7 days, then 100 mg every morning and 100mg every evening x 7 days, then 100 mg every morning and 200mg every evening x 7 days, then (they are at this point currently) 200 mg every morning and 200mg every evening x 7 days, then 200 mg every morning and 300mg every evening x 7 days, then 300 mg every morning and 300mg every evening ongoing Patient reports no improvement. Encouraged them to continue the titration. His is very organized with his medications and follows instructions well. Advanced care planning: POLST in place, with DNR and selective treatment. Patient's main concern is pain in his hands. 's concern is what will happen when Home Health discharges them. I explained HH will continue to monitor the Boland catheter as long as a catheter is indicated. Time Spent: 30 minutes were spent with more than 50% of the time spent on counseling, education, providing anticipatory guidance, and coordination of care.
== END 2017-11-21 21:20 | disposition home or self-care (01) ==
LOC: PC 21:19
PROVIDERS: ATTEND Nurse Practitioner
DX: Z51.5 Encounter for palliative care (principal); E66.01 Morbid (severe) obesity due to excess calories; J44.9 Chronic obstructive pulmonary disease, unspecified; I13.0 Hypertensive heart and chronic kidney disease with heart failure and stage 1 through stage 4 chronic kidney disease, or unspecified chronic kidney disease; N18.9 Chronic kidney disease, unspecified; I50.30 Unspecified diastolic (congestive) heart failure; Z74.01 Bed confinement status; K59.00 Constipation, unspecified; N40.1 Benign prostatic hyperplasia with lower urinary tract symptoms; R33.8 Other retention of urine; N39.498 Other specified urinary incontinence; M62.81 Muscle weakness (generalized); E11.22 Type 2 diabetes mellitus with diabetic chronic kidney disease; E11.42 Type 2 diabetes mellitus with diabetic polyneuropathy; E11.51 Type 2 diabetes mellitus with diabetic peripheral angiopathy without gangrene; E11.319 Type 2 diabetes mellitus with unspecified diabetic retinopathy without macular edema; I27.20 Pulmonary hypertension, unspecified; I25.10 Atherosclerotic heart disease of native coronary artery without angina pectoris; N17.9 Acute kidney failure, unspecified; M10.9 Gout, unspecified; D64.9 Anemia, unspecified; F32.9 Major depressive disorder, single episode, unspecified; H91.90 Unspecified hearing loss, unspecified ear; Z66 Do not resuscitate; Z79.4 Long term (current) use of insulin; Z79.891 Long term (current) use of opiate analgesic; Z79.51 Long term (current) use of inhaled steroids
CPT/HCPCS: 99348

== ENCOUNTER 2017-12-25 20:58 | Outpatient (CLI) | payer MEDICARE ==
--- NOTE | 2017-12-25 21:05 | CONSULTATION NOTE ---
Palliative Care Follow Up - Referral Referring Provider: Dr Candelaria Time of Visit: 12/25/2017. 11:35 - 12:35 Referral setting: Home (Seen in home setting due to taxing and considerable effort required to leave the home due to immoblity and being bedbound from lower extremity weakness secondary to multiple comorbidities.) Referral Reason: Hand pain - Information Sources Records reviewed: Previous records reviewed History/Review of Systems obtained from: Patient, Family Exam limitations: No limitations - History of Present Illness Update Brief HPI Update: 77-year-old man with end-stage COPD who is now bedridden after severe urinary retention episode in October 2017. Indwelling Boland catheter was placed, he has been followed by Home Health Nursing since this episode and he has steadily improved, although he remains completely bedridden and no longer able to transfer, stand, or ambulate. -Comorbidities: End-stage COPD, diastolic heart failure (EF 55%), morbid obesity , DMII with peripheral neuropathy and nephropathy, peripheral vascular disease, hypertension, retinopathy, RAD, pulmonary hypertension, CAD, CKD ABHINAV, BPH, gout , anemia, depression, history of cholecystectomy, history of laser eye procedure , history of urinary retention, with indwelling Boland catheter. -Home Health PT was discharged 11/27/17 after his over-bed trapeze arrived. -Caregiving is much improved with patient in a hospital bed -Home Health Nursing is tapering down his service: she will see him 1x/week for 2 weeks, then 1x monthly for Boland catheter change/care. -Patient's spouse hesitant to have HH bath aid discharged, would like a few more weeks to be comfortable. 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 -Patient is no longer on gabapentin, started for chronic hand pain secondary to diabetic neuropathy. -It was started 11/01/17 with upward taper, but correction through the taper period , the patient complained of nightmares, bad mood, grogginess, and wanted to stop. Downward taper was started, and was completed by end of November. -Patient feels back to being himself, even his HH bath aid noticed "he was back to normal." -Discussed with patient benefits and burdens of starting pregabalin/Lyrica: whether insurance covers it, possible side effects. -Patient declined pregabalin. -Discussed doing a trial removal of the Boland catheter, due to increased risk of UTI with indwelling catheter. Will follow up with Home Health. Social History - Living Situation Living arrangement: At home Living Situation: With spouse/s.o. Support System: Spouse is his main caregiver. One son lives at home, doesn't appear very involved in care of patient. Patient and his have 5 adult children: 3 sons, 2 daughters, and numerous grandchildren. Medications/Allergies - Medications Home Medications: Ambulatory Orders Medication Instructions Recorded Confirmed Allopurinol [Zyloprim] 100 mg PO BID PRN 02/15/13 10/17/17 Aspirin [Aspir 81] 81 mg PO DAILY 02/15/13 10/17/17 Furosemide [Lasix] 240 mg PO BID 02/15/13 10/17/17 Potassium 20 meq PO BID 02/15/13 10/17/17 Simvastatin [Zocor] 20 mg PO DAILY 02/15/13 10/17/17 metOLazone [Metolazone] 2.5 mg PO .ONCE A WEEK 04/06/13 10/17/17 Cholecalciferol (Vitamin D3) 2,000 unit PO DAILY 04/08/13 10/17/17 [Vitamin D-3] HYDROcodone/ACET 7.5/325 [Lortab 1 tab PO Q6H PRN 04/08/13 10/17/17 7.5/325] Insulin Regular, Human [Humulin R 10 units SUBQ TIDWM 04/12/15 10/17/17 U-500] Tamsulosin HCl [Flomax] 0.4 mg ORAL DAILY 04/12/15 10/17/17 Insulin Glargine [Lantus Solostar] 50 units SQ BID 03/23/17 10/18/17 Metoprolol Tartrate 50 mg PO BID 03/23/17 10/17/17 Ipratropium/Albuterol [Duoneb] 3 ml PO BID 07/23/17 10/17/17 Mometasone/Formoterol [Dulera 200 2 puffs PO BID 07/23/17 10/17/17 Mcg/5 Mcg Inhaler] Polyethylene Glycol 3350 [Miralax] 17 gm PO DAILY MDD use from 06/20 - 07/23/17 1 capful daily Zinc 50 mg PO DAILY 02/06/18 05/03/18 Ipratropium/Albuterol Sulfate 3 ml PO Q4H PRN 10/17/17 10/17/17 [Iprat-Albut 0.5-3(2.5) mg/3 ml] Isosorbide Mononitrate [Isosorbide 30 mg PO DAILY 10/17/17 10/17/17 Mononitrate ER] Nitroglycerin 0.4 mg SL Q5MIN PRN 10/17/17 10/17/17 Nystatin 1 ea TOP BID 10/17/17 10/17/17 Albuterol Sulf [Ventolin Hfa 1 - 2 puffs INH Q4HR PRN 12/25/17 12/25/17 Inhaler] - Allergies Allergies/Adverse Reactions: Allergies Allergy/AdvReac Type Severity Reaction Status Date / Time naproxen sodium * Allergy Intermediate Rash Verified 04/12/15 16:03 [From Aleve] lisinopril Allergy Unknown Verified 04/12/15 16:03 NSAIDS (Non-Steroidal Allergy Unknown Verified 04/12/15 16:03 Anti-Inflamma horsehair Allergy Unknown Uncoded 04/12/15 16:03 Review of Systems - Constitutional Constitutional: reports: Weakness, Other (Weight unknown; unable to get weighed due to bed bound status. L bicep is 37cm. Most recent confirmed weight was 239.5 lbs at Mar 2017 ED visit. Weighed 341.66 (BMI 50.6) at Mar 2015 ED visit. ). denies: Poor appetite - Ears, Nose & Throat Ears, Nose & Throat: reports: Hearing loss - Cardiovascular Cardiovascular: denies: Chest pain - Respiratory Respiratory: reports: SOB at rest (occasional). denies: Cough - Gastrointestinal Gastrointestinal: reports: Constipation (bowel movements about every 2-3 days, interspersed with multiple loose stools in a day. Difficult to get a clear answer from his spouse.) - Genitourinary Genitourinary: reports: Other (Boland catheter.) - Musculoskeletal Musculoskeletal: reports: Transfer issues (Bed bound, can do a slight amount of repositioning in bed by grasping side bars or over-bed trapeze) - Neurological Neurological: reports: General weakness, Focal weakness (lower extremities), Numbness, Memory problems, Pre-existing deficit - Endocrine Endocrine: reports: Diabetes type 2 Physical Exam - Vital Signs Temperature: 96.0 F Pulse Rate: 84 O2 Saturation: 94 (on continuous 1.5L) Blood Pressure: 128/84 - Physical Exam General Appearance: positive: No acute distress, Alert Eyes Bilateral: positive: No lid inflammation, Conjunctivae nml, No scleral icterus ENT: positive: No signs of dehydration Neck: positive: Trachea midline Cardiovascular: positive: Regular rate & rhythm, No murmur Respiratory: positive: Chest non-tender, No respiratory distress Abdomen: positive: Non-tender, Soft, Abnml bowel sounds (hypoactive), Obese, Other (hiatal hernia) Skin: positive: Wound (L anterior kauffman, healing, scabbed) Extremities: positive: No pedal edema, Other (vascular discoloration of LEs; significant fungal nails) Neurologic/Psychiatric: positive: Oriented x3, Mood/affect nml Palliative Care - POLST Patient has POLST: Yes POLST Status: DNR, Selective Treatment Pain: Pain unchanged (chronic pain), Comment (His hands have hurt for years to the point he's "become numb to it." He recounts how he has pulled out two teeth with no anesthesia without sensing pain, that's "how used to pain" he has become.) Tiredness/Fatigue: Moderate (4-6) Drowsiness/Sedation: None Nausea: None Dyspnea: Mild (1-3) Anorexia: None Sleep: Sleep improved Constipation: Intermittent constipation Performance Status: His functionality has declined since his urinary retention incident, where he is no longer able to stand upright, so he remains totally bedbound. He uses a bedpan for bowel movements. He is on indwelling Boland catheter. Today he appears much improved, with clear verbalization and interaction, and mentally alert. He credits this to stopping gabapentin, but in fact it is since the October episode of urinary retention, when he was very ill. Discussed with he and his about a trial removal of the indwelling. I will follow up with Home Health about this. His is concerned about losing the Home Health support and wonders "what will I do when he is feeling sick." We discussed HH versus intermediate care, ongoing palliative care monitoring, and 911 in emergencies She also wants to know how they will take blood samples or urinary samples, as they used to do when he visited specialists (nephrology, cardiology). We discussed goals of care and talked about issues such as a health crisis. More discussion is needed around their clarify of goals. She confirms "I will never send him to a rest home." But she will call 911 and to the hospital if needed. Patient has expressed in the past that he does not want a transfer to hospital. Impression and Recommendations - Palliative Care Impression: This is a 77-year-old man with end-stage chronic pulmonary disease, diastolic heart failure, and chronic kidney disease with DM 2, and numerous other serious comorbidities. He has improved his since his urinary retention episode in October, but remains at risk for the sequela of his multiple serious health problems. Home health nursing is starting to taper down their service, aiming for a monthly visit for change and care of indwelling catheter. A trial removal of the catheter may be beneficial. Patient and his have some unclear and undefined goals of care, palliative care will support and continue the conversation around goals of care. Recommendations/Counseling Done: Neuropathic pain: Gabapentin was stopped due to intolerable side effects ( nightmares, oversedation, mood change). Patient declined starting pregabalin. Will continue hand exercises (eg, with balls) recommended to him by PT. Constipation: Educated spouse on using Miralax daily instead of an as-needed approach, and adjusting the dosage. She also uses a "stool softener," likely docusate. She hasn't been able to find Senna at her local pharmacy. Urinary retention: Continues on Boland catheter. Current plan is for HH Nursing to decrease to 1x/week for 2 weeks, then down to 1x/month for catheter change and care. Consider doing a trial removal of catheter and monitor for urinary retention. L anterior kauffman wound: Recurring with ongoing treatment. Currently scabbing, no exudate or s/s infection, covered with clean dressing. HH RN will provide follow up for the next 2 weeks. Advanced care planning: Continue conversation around clarity of goals. Sufficient support for caregiving is an ongoing issue particularly with Home Health soon tapering down to one visit per month. 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 Palliative care support to continue. Next visit: February 05 11:30 Time Spent: 60 minutes were spent with more than 50% of the time spent on counseling, education, and coordination of care.
== END 2017-12-25 20:59 | disposition home or self-care (01) ==
LOC: PC 20:58
PROVIDERS: ATTEND Nurse Practitioner
DX: Z51.5 Encounter for palliative care (principal); E66.01 Morbid (severe) obesity due to excess calories; J44.9 Chronic obstructive pulmonary disease, unspecified; Z74.01 Bed confinement status; E11.42 Type 2 diabetes mellitus with diabetic polyneuropathy; H91.90 Unspecified hearing loss, unspecified ear; K59.00 Constipation, unspecified; R33.9 Retention of urine, unspecified; I13.0 Hypertensive heart and chronic kidney disease with heart failure and stage 1 through stage 4 chronic kidney disease, or unspecified chronic kidney disease; E11.22 Type 2 diabetes mellitus with diabetic chronic kidney disease; N18.9 Chronic kidney disease, unspecified; I50.30 Unspecified diastolic (congestive) heart failure; E11.51 Type 2 diabetes mellitus with diabetic peripheral angiopathy without gangrene; G89.29 Other chronic pain; S81.812D Laceration without foreign body, left lower leg, subsequent encounter; Z66 Do not resuscitate; Z79.82 Long term (current) use of aspirin; Z79.891 Long term (current) use of opiate analgesic; Z79.4 Long term (current) use of insulin; Z79.51 Long term (current) use of inhaled steroids
CPT/HCPCS: 99350

== ENCOUNTER 2018-02-05 17:48 | Outpatient (CLI) | payer MEDICARE ==
--- NOTE | 2018-02-05 20:11 | CONSULTATION NOTE ---
Palliative Care Follow Up - Referral Referring Provider: Dr Marivel Candelaria Time of Visit: 02/05/2018. 11:20 - 12:20 Referral setting: Home (Seen in home setting due to taxing and considerable effort required to leave the home due to immobility/bedbound status from lower extremity weakness secondary to multiple comorbidities.) Referral Reason: Weak voice / cognitive changes - Information Sources Records reviewed: Previous records reviewed History/Review of Systems obtained from: Patient, Family Exam limitations: Clinical condition - History of Present Illness Update Brief HPI Update: 77-year-old man with end-stage COPD who is now bedridden after severe urinary retention episode in October 2017. Indwelling Boland catheter was placed, he has been followed by Home Health Nursing since this episode and he has steadily improved, although he remains completely bedridden and no longer able to transfer, stand, or ambulate. -Comorbidities: End-stage COPD, diastolic heart failure (EF 55%), morbid obesity , DMII with peripheral neuropathy and nephropathy, peripheral vascular disease, hypertension, retinopathy, RAD, pulmonary hypertension, CAD, CKD ABHINAV, BPH, gout , anemia, depression, history of cholecystectomy, history of laser eye procedure , history of urinary retention, with indwelling Boland catheter. -Spouse had reported to nursing that patient has had increased confusion for 2 weeks, trying to get out of bed when not supervised. -On phone call to spouse last week, she stated his "mind is going," voice is weaker. -Patient does have weak voice, sometimes it's necessary to put ear right next to his mouth. At other instances he speaks in a normal voice. -On 01/07/2018 he fell and hit the back of his head, had a headache for a few days, and then it passed. At the time he refused an ED visit. His friends wanted to take him to a buddhism picnic, so 4 men got him out of bed, put him in a borrowed wheelchair and loaded him into a van, but didn't secure the wheelchair properly (it was put in the front passenger area, and the chair tipped over with him in it. -Patient has not had a bowel movement since Saturday (it's Saturday). Prior to that he had several BMs per day and she stopped giving him his bowel medications. -Patient has significant fungal toenails. They are not trimming his toenails due to fear of cutting him since he is diabetic. Spouse says they used to have someone visit the house, but that provider is no longer doing home visits. They do not want to go into the manager retail store in [place]. -They check his blood glucose only once a day, ranges have been fine. When it's lower than 100 she thinks it's too low; I provided education on the appropriate level (hypoglycemia is under 70). -One of her sons and his family, from [place], were visiting them during today' s visit. Social History - Living Situation Living arrangement: At home Living Situation: With spouse/s.o. Support System: Spouse is his main caregiver. Martinez, son, lives at home has not been very involved in the care of patient. Patient and his have 5 adult children: 3 sons, 2 daughters, and numerous grandchildren. Medications/Allergies - Medications Home Medications: Ambulatory Orders Medication Instructions Recorded Confirmed Allopurinol [Zyloprim] 100 mg PO BID PRN 02/15/13 10/17/17 Aspirin [Aspir 81] 81 mg PO DAILY 02/15/13 10/17/17 Furosemide [Lasix] 240 mg PO BID 02/15/13 10/17/17 Potassium 20 meq PO BID 02/15/13 10/17/17 Simvastatin [Zocor] 20 mg PO DAILY 02/15/13 10/17/17 metOLazone [Metolazone] 2.5 mg PO .ONCE A WEEK 04/06/13 10/17/17 Cholecalciferol (Vitamin D3) 2,000 unit PO DAILY 04/08/13 10/17/17 [Vitamin D-3] HYDROcodone/ACET 7.5/325 [Lortab 1 tab PO Q6H PRN 04/08/13 10/17/17 7.5/325] Insulin Regular, Human [Humulin R 10 units SUBQ TIDWM 04/12/15 10/17/17 U-500] Tamsulosin HCl [Flomax] 0.4 mg ORAL DAILY 04/12/15 10/17/17 Insulin Glargine [Lantus Solostar] 50 units SQ BID 03/23/17 10/18/17 Metoprolol Tartrate 50 mg PO BID 03/23/17 10/17/17 Ipratropium/Albuterol [Duoneb] 3 ml PO BID 07/23/17 10/17/17 Mometasone/Formoterol [Dulera 200 2 puffs PO BID 07/23/17 10/17/17 Mcg/5 Mcg Inhaler] Polyethylene Glycol 3350 [Miralax] 17 gm PO DAILY MDD use from 06/20 - 07/23/17 1 capful daily Zinc 50 mg PO DAILY 07/23/17 10/17/17 Ipratropium/Albuterol Sulfate 3 ml PO Q4H PRN 10/17/17 10/17/17 [Iprat-Albut 0.5-3(2.5) mg/3 ml] Isosorbide Mononitrate [Isosorbide 30 mg PO DAILY 10/17/17 10/17/17 Mononitrate ER] Nitroglycerin 0.4 mg SL Q5MIN PRN 10/17/17 10/17/17 Nystatin 1 ea TOP BID 10/17/17 10/17/17 Albuterol Sulf [Ventolin Hfa 1 - 2 puffs INH Q4HR PRN 12/25/17 12/25/17 Inhaler] - Allergies Allergies/Adverse Reactions: Allergies Allergy/AdvReac Type Severity Reaction Status Date / Time naproxen sodium * Allergy Intermediate Rash Verified 04/12/15 16:03 [From Aleve] lisinopril Allergy Unknown Verified 04/12/15 16:03 NSAIDS (Non-Steroidal Allergy Unknown Verified 04/12/15 16:03 Anti-Inflamma horsehair Allergy Unknown Uncoded 04/12/15 16:03 Review of Systems - Constitutional Constitutional: reports: Fatigue, Weakness, Poor appetite, Weight loss (Weight unknown; most recent weight 239.5 lbs Mar 2017 ED visit. Hasweighed 341.6 at Mar 2015 ED visit. L bicep was 37cm 12/25/17.) - Ears, Nose & Throat Ears, Nose & Throat: reports: Hearing loss - Cardiovascular Cardiovascular: denies: Chest pain - Respiratory Respiratory: reports: SOB at rest (chronic; at baseline; uses nebulizer 3x/day) . denies: Cough - Gastrointestinal Gastrointestinal: reports: Constipation. denies: Abdominal pain - Genitourinary Genitourinary: reports: Other (Boland catheter). denies: Flank pain - Musculoskeletal Musculoskeletal: reports: Joint pain, Assistive devices (over-trapeze), Transfer issues (bed bound, can do a minimal amount of repositioning by grasping the over-bed trapeze.) - Integumentary Integumentary: reports: Pigment changes (on bilateral lower extremities) - Neurological Neurological: reports: General weakness, Memory problems - Endocrine Endocrine: reports: Diabetes type 2 Physical Exam - Vital Signs Temperature: 96.6 F Pulse Rate: 71 O2 Saturation: 95 (on 1.5 L O2 via NC) Blood Pressure: 130/84 - Physical Exam General Appearance: positive: No acute distress, Alert Eyes Bilateral: positive: No lid inflammation, Conjunctivae nml, No scleral icterus ENT: positive: No signs of dehydration Neck: positive: Trachea midline Cardiovascular: positive: Regular rate & rhythm, No murmur, No gallop Respiratory: positive: Chest non-tender, No respiratory distress, Diminished throughout Abdomen: positive: Non-tender, Soft, Obese, Other (ventral hernia) Skin: positive: Wound (resolving, L kauffman, covered with dressing for protection, RN will change at next visit), Other (hemosiderin discoloration on bilateral shins) Neurologic/Psychiatric: positive: Disoriented to time, Slurred/abnml speech ( voice very weak, but at moments it is normal), Flat affect Palliative Care - POLST Patient has POLST: Yes POLST Status: DNR, Selective Treatment Pain: Pain unchanged Tiredness/Fatigue: Mild (1-3) Drowsiness/Sedation: None Dyspnea: Moderate (4-6), Comment (chronic) Sleep: Variable sleep pattern Constipation: Yes, Opoid induced - Palliative Care Discussion: -Their goal is to keep the patient at home and to avoid hospital and nursing homes. -Spouse's biggest worry is not having ongoing nursing support to oversee the care, and someone to help with changing his bedding weekly. Currently Home Health Aid is doing that. -We spent a significant amount of time discussing this, I provided education on nursing vs fpc caregiving, but the spouse is resistant to this differentiation. She says they received more nursing help back in 2014. -The spouse is steadfast in her refusal to hire cargiving. 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 -I voiced my concern about the risk of burnout for her, being the sole caregiver 24hrs/day. She says she is able to do it, but does need help on changing the bed linens. Their son Jose G lives at home, apparently he has Mondays off and stays at home when his mother is at work. It appears he is not very active in caregiving support. -In response to the question of obtaining outside caregiving help, the spouse repeats that she does things in her own time, she will wait and wait and when she's ready, then she'll do it. Impression and Recommendations - Palliative Care Impression: 77-year-old man with end-stage chronic pulmonary disease, diastolic heart failure, and chronic kidney disease with DM 2, and numerous other serious comorbidities with slow, steady decline in functionality and cognition. Home health nursing is now monthly for Boland catheter care, and the Health Aid currently comes weekly but will likely discharge soon. The patient's spouse is concerned about losing the nursing support, but does not want to hire private caregivers, and does not qualify for JUAN. Palliative care will continue to provide oversight and supportive care and continue the conversation around goals of care. Recommendations/Counseling Done: Chronic pain: At baseline chronic neuropathic pain in hands, and elsewhere. Continues [place] 7.5/325 4x daily. Gabapentin was stopped due to intolerable side effects (nightmares, over-sedation, mood change) and he declined pregabalin. Constipation: Patient has not had a bowel movement since Saturday (it's Sat). Provided further education and discussion with spouse on opioid-induced constipation, how to use Miralax daily, not PRN. She also uses docusate and also has Dulcolax. I encouraged her to give him the Miralax, find the Senna at a drugstore (the stores she went to did not stock it), and also use the Dulcolax since it's been 5 days without a bowel movement. Urinary retention: No issues. Continues on Boland catheter; urine yellow and clear, 170 cc. Spouse reports emptying it twice daily, quantity range is 700- 1200cc. Nursing is now scheduled for 1x/month for catheter change and care, next visit is in 2 weeks, on 02/18/18. Do not consider trial removal of catheter, since this supports their goal of keeping him at home by alleviating the caregiving burden and also provides at least monthly RN oversight. L anterior kauffman wound: Wound closed to full healing; HH RN visited this week for a PRN visit, will now resume scheduled home visits once a month. Advanced care planning: Sufficient support for caregiving is an ongoing issue patient's spouse does not at this time want to engage private caregivers. HH RN will visit monthly for Boland catheter maintenance and changing. Home Health aid is still helping with bed changing but will likely discharge soon. Spouse would like continued support of HH nursing, has difficulty accepting/differentiating caregiving vs nursing support. Palliative care will continue to provide oversight and support. DMII: Continuing on regular insulin and Lantus. BG check is done once a day; it 's not been hypoglycemic. Patient has fungal tonails, but spouse is not pursuing foot care or nail trimming due to fear of injury. She does not want to take him into the manager retail store in [place]. Lab draws ordered for next HH RN visit on 02/18/18: CBC w/diff, CMP, HgbA1c, B12 , folate Next visit: 4-6 weeks Time Spent: 60 minutes spent with more than 50% of the time spent on counseling, education, anticipatory guidance, and coordination of care.
== END 2018-02-05 17:49 | disposition home or self-care (01) ==
LOC: PC 17:48
PROVIDERS: ATTEND Nurse Practitioner
DX: Z51.5 Encounter for palliative care (principal); G89.29 Other chronic pain; M79.642 Pain in left hand; M79.641 Pain in right hand; K59.03 Drug induced constipation; T40.2X5A Adverse effect of other opioids, initial encounter; R33.9 Retention of urine, unspecified; E11.22 Type 2 diabetes mellitus with diabetic chronic kidney disease; E11.40 Type 2 diabetes mellitus with diabetic neuropathy, unspecified; I13.0 Hypertensive heart and chronic kidney disease with heart failure and stage 1 through stage 4 chronic kidney disease, or unspecified chronic kidney disease; N18.9 Chronic kidney disease, unspecified; I50.30 Unspecified diastolic (congestive) heart failure; J44.9 Chronic obstructive pulmonary disease, unspecified; Z79.4 Long term (current) use of insulin; Z74.01 Bed confinement status; Z79.82 Long term (current) use of aspirin; R06.09 Other forms of dyspnea; Z96.0 Presence of urogenital implants; M62.81 Muscle weakness (generalized); Z66 Do not resuscitate
CPT/HCPCS: 99350

== ENCOUNTER 2018-02-10 10:50 | Outpatient (CLI) | payer MEDICARE ==
[2018-02-10 17:49] LABS: BILIRUBIN,URINE NEGATIVE (NEGATIVE); GLUCOSE, URINE (UA) NEGATIVE (NEGATIVE); KETONES,URINE (UA) NEGATIVE (NEGATIVE); LEUKOCYTE ESTERASE, URINE SMALL (NEGATIVE); NITRITE,URINE POSITIVE (NEGATIVE); OCCULT BLOOD,URINE LARGE (NEGATIVE); PH,URINE 6.5 PH (5.0-7.5); PROTEIN,URINE 100 mg/dL (NEGATIVE); UROBILINOGEN,URINE 1 (NORMAL) E.U./dL (NORMAL)
[2018-02-10 19:36] LABS: BACTERIA,URINE None Seen /HPF (None Seen); CLARITY,URINE CLOUDY (CLEAR); RBC,URINE TNTC /HPF (0-5); SQUAMOUS EPITHELIAL CELL,UR NONE SEEN (<= Few)
== END 2018-02-10 10:51 | disposition home or self-care (01) ==
LOC: LAB.R 10:50
PROVIDERS: ATTEND Internal Medicine
DX: N39.0 Urinary tract infection, site not specified (principal)
CPT/HCPCS: 81001; 87086

== ENCOUNTER 2018-02-19 09:00 | Outpatient (CLI) | payer MEDICARE ==
[2018-02-19 17:53] LABS: BASOPHILS % (AUTO) 0.3 %; EOSINOPHILS # (AUTO) 0.2 10^3/uL (0.0-0.7); EOSINOPHILS % (AUTO) 1.7 %; LYMPHOCYTES # (AUTO) 2.2 10^3/uL (1.5-3.5); LYMPHOCYTES % (AUTO) 24.9 %; MEAN CORPUSCULAR HEMOGLOBIN 31.7 pg (27.0-31.0); MEAN CORPUSCULAR HGB CONC 32.5 g/dL (32.0-36.0); MEAN CORPUSCULAR VOLUME 97.4 fL (80.0-94.0); MEAN PLATELET VOLUME 8.3 fL (7.4-11.4); MONOCYTES # (AUTO) 0.8 10^3/uL (0.0-1.0); MONOCYTES % (AUTO) 8.6 %; NEUTROPHILS # (AUTO) 5.7 10^3/uL (1.5-6.6); NEUTROPHILS % (AUTO) 64.5 %; PLT - PLATELET COUNT 303 10^3/uL (130-450); WHITE BLOOD COUNT 8.8 x10^3/uL (4.8-10.8)
[2018-02-19 18:11] LABS: HB2 TOTAL 12.5 g/dL; HEMOGLOBIN A1C 0.72 g/dL; HEMOGLOBIN A1C % 7.4 % (4.6-6.2)
[2018-02-19 18:40] LABS: FOLATE 9.22 ng/mL (5.90 - >24.8)
[2018-02-19 18:50] LABS: ALBUMIN/GLOBULIN RATIO 0.8 (1.0-2.2); BILIRUBIN,TOTAL 0.4 mg/dL (0.2-1.0); CALCIUM 9.8 mg/dL (8.5-10.3); CREATININE 1.1 mg/dL (0.6-1.2)
== END 2018-02-19 09:01 | disposition home or self-care (01) ==
LOC: LAB.R 09:00
PROVIDERS: ATTEND Nurse Practitioner
DX: J44.9 Chronic obstructive pulmonary disease, unspecified (principal); E11.22 Type 2 diabetes mellitus with diabetic chronic kidney disease; I50.9 Heart failure, unspecified
CPT/HCPCS: 36415; 80053; 82607; 82746; 83036; 85025

== ENCOUNTER 2018-02-25 08:00 | Outpatient (CLI) | payer MEDICARE | END 2018-02-25 08:01 | disposition home or self-care (01) | LOC: LAB.R 08:00 | PROVIDERS: ATTEND Internal Medicine | DX: R36.9 Urethral discharge, unspecified (principal) | CPT/HCPCS: 87070; 87077; 87181 ==

== ENCOUNTER 2018-03-05 12:00 | Outpatient (CLI) | payer MEDICARE ==
--- NOTE | 2018-03-05 15:07 | CONSULTATION NOTE ---
Palliative Care Follow Up - Referral Referring Provider: Dr Candelaria Time of Visit: 03/05/2018. 12:00 - 12:30 Referral setting: Home (Seen in home setting due to taxing and considerable effort required to leave the home due to immobility/bedbound status from lower extremity weakness secondary to multiple comorbidities.) - Information Sources Records reviewed: Previous records reviewed History/Review of Systems obtained from: Patient, Family Exam limitations: No limitations - History of Present Illness Update Brief HPI Update: 77-year-old man with end-stage COPD who is now bedridden after severe urinary retention episode in October 2017. Indwelling Boland catheter was placed, he has been followed by Home Health Nursing since this episode and he has steadily improved, although he remains completely bedridden and no longer able to transfer, stand, or ambulate. -Comorbidities: End-stage COPD, diastolic heart failure (EF 55%), morbid obesity, DMII with peripheral neuropathy and nephropathy, peripheral vascular disease, hypertension, retinopathy, RAD, pulmonary hypertension, CAD, CKD ABHINAV, BPH, gout, anemia, depression, history of cholecystectomy, history of laser eye procedure, history of urinary retention, with indwelling Boland catheter. -Patient had a UTI which resolved with ciprofloxacin which completed on 02/20/18. -Last week's culture of penile discharge was positive for P aeruginosa and E faecalis, PCP ordered topical gentamicin 0.1%, and patient started on it today. -Patient's CO2 levels 02/19/18 were critically elevated (43), but he has chronically elevated CO2 levels. He is on 24/7 oxygen usually running at 1.5 liters. -Patient reports being "fine" and at his baseline, pain is "tolerable," and SOA is baseline. He does admit to fatigue. -Fatou continues to be the sole caregiver. 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 She is planning to retire at the end of the year. It is unclear if their son will continue to help out on Mondays when she is no longer working. Social History - Living Situation Living arrangement: At home Living Situation: With spouse/s.o. Support System: Fatou, spouse, is sole caregiver. Son lives at home and helps on Mondays, when she works at the [employer]. She does not want to hire outside caregivers due to cost. Medications/Allergies - Medications Home Medications: Ambulatory Orders Medication Instructions Recorded Confirmed Allopurinol [Zyloprim] 100 mg PO BID PRN 02/15/13 03/05/18 Aspirin [Aspir 81] 81 mg PO DAILY 02/15/13 03/05/18 Furosemide [Lasix] 240 mg PO BID 02/15/13 03/05/18 Potassium 20 meq PO BID 02/15/13 03/05/18 Simvastatin [Zocor] 20 mg PO DAILY 02/15/13 03/05/18 metOLazone [Metolazone] 2.5 mg PO .ONCE A WEEK 04/06/13 03/05/18 Cholecalciferol (Vitamin D3) 2,000 unit PO DAILY 04/08/13 03/05/18 [Vitamin D-3] HYDROcodone/ACET 7.5/325 [Lortab 1 tab PO Q6H PRN 04/08/13 03/05/18 7.5/325] Insulin Regular, Human [Humulin R 10 units SUBQ TIDWM 04/12/15 03/05/18 U-500] Tamsulosin HCl [Flomax] 0.4 mg ORAL DAILY 04/12/15 03/05/18 Insulin Glargine [Lantus Solostar] 50 units SQ BID 03/23/17 03/05/18 Metoprolol Tartrate 50 mg PO BID 03/23/17 03/05/18 Ipratropium/Albuterol [Duoneb] 3 ml PO BID 07/23/17 03/05/18 Mometasone/Formoterol [Dulera 200 2 puffs PO BID 07/23/17 03/05/18 Mcg/5 Mcg Inhaler] Polyethylene Glycol 3350 [Miralax] 17 gm PO DAILY MDD use from 06/20 - 07/23/17 03/05/18 1 capful daily Zinc 50 mg PO DAILY 07/23/17 03/05/18 Ipratropium/Albuterol Sulfate 3 ml PO Q4H PRN 10/17/17 03/05/18 [Iprat-Albut 0.5-3(2.5) mg/3 ml] Isosorbide Mononitrate [Isosorbide 30 mg PO DAILY 10/17/17 03/05/18 Mononitrate ER] Nitroglycerin 0.4 mg SL Q5MIN PRN 10/17/17 03/05/18 Nystatin 1 ea TOP BID 10/17/17 03/05/18 Albuterol Sulf [Ventolin Hfa 1 - 2 puffs INH Q4HR PRN 12/25/17 03/05/18 Inhaler] Bisacodyl Supp [Dulcolax Supp] 10 mg ND PRN PRN 03/05/18 03/05/18 Docusate Sodium [Dss] 250 mg PO DAILY PRN 03/05/18 03/05/18 - Allergies Allergies/Adverse Reactions: Allergies Allergy/AdvReac Type Severity Reaction Status Date / Time naproxen sodium * Allergy Intermediate Rash Verified 04/12/15 16:03 [From Aleve] lisinopril Allergy Unknown Verified 04/12/15 16:03 NSAIDS (Non-Steroidal Allergy Unknown Verified 04/12/15 16:03 Anti-Inflamma horsehair Allergy Unknown Uncoded 04/12/15 16:03 Review of Systems - Constitutional Constitutional: reports: Weakness, Weight stable. denies: Poor appetite - Cardiovascular Cardiovascular: reports: Exertional dyspnea. denies: Chest pain - Respiratory Respiratory: reports: SOB at rest, SOB with exertion - Gastrointestinal Gastrointestinal: reports: Constipation, Good appetite - Genitourinary Genitourinary: reports: Incontinence, Other (Boland catheter) - Musculoskeletal Musculoskeletal: reports: Limited range of motion, Muscle weakness, Joint pain, Assistive devices (over-bed trapeze), Transfer issues (bedbound, minimal ability to reposition) - Neurological Neurological: reports: General weakness - Psychiatric Psychiatric: denies: Behavior disturbances - Other Findings Other Findings: Limited ROS Physical Exam - Vital Signs Temperature: 96.2 F Pulse Rate: 70 O2 Saturation: 96 (1.5 Liters O2) Blood Pressure: 130/75 (arm cuff) - Physical Exam General Appearance: positive: No acute distress, Alert Eyes Bilateral: positive: No lid inflammation, Conjunctivae nml, No scleral icterus ENT: positive: No signs of dehydration Neck: positive: Trachea midline Cardiovascular: positive: Regular rate & rhythm, No murmur, No gallop Respiratory: positive: Chest non-tender, No respiratory distress, Diminished in bases, Rales (Mild RLL) Abdomen: positive: Obese Skin: positive: Pressure wound (L and R buttocks, resolving), Other (permanent discoloration anterior LEs) Neurologic/Psychiatric: positive: Oriented x3, Flat affect Palliative Care - POLST Patient has POLST: Yes POLST Status: DNR, Selective Treatment Tiredness/Fatigue: Moderate (4-6) Dyspnea: Moderate (4-6), Comment (chronic) Anorexia: None Constipation: Yes, Unmanaged (Bowel medications not administered daily), Intermittent constipation - Palliative Care Discussion: POLST is DNR and selective treatment. Goal of patient and family is that the patient remain at home. So far the spouse refuses to consider hiring outside caregiving due to cost. Having Nursing and Palliative Care oversight is helping the patient remain at home. Impression and Recommendations - Palliative Care Impression: 77-year-old man with end-stage chronic pulmonary disease, diastolic heart failure, and chronic kidney disease with DM 2, and numerous other serious comorbidities with slow, steady decline in functionality and cognition. Home health nursing continues to manage his Boland catheter and has been coming weekly for new buttocks wounds, which are now healing. Spouse continues to provide the bulk of caregiving, with no additional caregiver support. Palliative care will continue to provide oversight and supportive care. Recommendations/Counseling Done: Chronic pain: At baseline, states pain is "tolerable." Continues [place] 7.5/325 4x daily. Gabapentin had undesired side effects so is no longer used for his neuropathic pain, and he declined pregabalin. Constipation: Sporadic. According to Fatou's record keeping, he had regular bowel movements,for two weeks up until this past weekend. Patient has not had a bowel movement since Saturday (today is Sat). Recommended full dose of Miralax, 2 Senna tablets, and Dulcolax, which the spouse has on hand. Educated about using bowel medications regularly and daily, instead of on a PRN basis.) Chronic elevated CO2: Compensated. CO2 of 02/19/18 is 43 (norm range is 21-32); however, the patient has had elevated levels of CO2 since 2014 (ranging from 34- 45). His O2 is usually at 1.5L, sometimes spouse raises it to 2L with episodic SOA. Urinary retention: Stable. Culture of penile discharge was positive and antibiotics started. RN will come 2x/week, then 1x/next week, then will likely decrease down to monthly visits for catheter care. Penile discharge: Culture showed positive for P aeruginosa and E faecalis, PCP started gentamicin 00.1% topical gel, 4x/day until resolved. Spouse started the gel today. UTI: Cleared up with ciprofloxacin regimen ordered by PCP and completed 02/20/18. L and R buttocks wound: Healing. HH RN will is following up the wound care this week and next week. Advanced care planning: POLST DNR and selective treatment. Goal is to keep patient at home. Spouse is not pursuing hiring additional caregiver help due to finances, and they don't qualify for JUAN help. Their son sometimes watches the patient on Mondays when Fatou, the spouse goes to work. She is planning on retiring at the end of the year. Follow up visit: 4-6 weeks Time Spent: 30 minutes were spent with more than 50% of the time spent on counseling, education, and coordination of care.
== END 2018-03-05 12:01 | disposition home or self-care (01) ==
LOC: PC 12:00
PROVIDERS: ATTEND Nurse Practitioner
DX: Z51.5 Encounter for palliative care (principal); G89.29 Other chronic pain; K59.00 Constipation, unspecified; T50.996A Underdosing of other drugs, medicaments and biological substances, initial encounter; R79.81 Abnormal blood-gas level; R33.9 Retention of urine, unspecified; Z96.0 Presence of urogenital implants; R36.9 Urethral discharge, unspecified; J44.9 Chronic obstructive pulmonary disease, unspecified; Z99.81 Dependence on supplemental oxygen; Z74.01 Bed confinement status
CPT/HCPCS: 99348